=== PATIENT | male | born 1970 | race Caucasian/White ===

== ENCOUNTER 2020-10-16 10:24 | Observation (INO) | payer BC, OTHER ==
[2020-10-16] MEDS ORDERED: Famotidine 20 MG/2 ML SDV IVPUSH ONE (10:27)
--- NOTE | 2020-10-16 10:27 | EDM.PDOC ---
ED HPI GENERAL MEDICAL PROBLEM - General Chief Complaint: Neuro Symptoms/Deficits Stated Complaint: stroke, syncopal Time Seen by Provider: 10/16/20 10:26 Source of Information: Reports: EMS, Family (), Old Records ([facility] chart/EMR). Denies: EMS Notes Reviewed ([employer] records not available at time of dictation, ENT records reviewed.) History Limitations: Reports: Altered Mental Status - History of Present Illness INITIAL COMMENTS - FREE TEXT/NARRATIVE: The patient was brought to the emergency room via ambulance with both faculty physician and EMT accompaniment secondary to a sudden syncopal episode at about 9:30 AM at work with the patient falling backwards and hitting his head. He has been in and out of consciousness since that time and initially did require a sternal rub, however no history of seizure activity, stool/urine incontinence, etc.. He is a somewhat poor historian secondary to his anxiety. Initial presentation of possible left hemiparesis, which did resolve at time of arrival of the paramedics to [facility]. Additional history of some possible hypotension by the ib[employer] web[employer] commerce developer however the paramedics noted hypertension. The patient denies any chest pain/pressure, heart flutter, dizziness, orthostasis, orthopnea, diaphoresis, recent decreased exercise tolerance, or any other anginal-type symptoms with nonspecific bilateral paresthesias possibly secondary to his anxiousness. No recent history of abdominal pain, heartburn, nausea, diarrhea, melena, gross hematochezia, or any food intolerance, including fatty foods, etc.. The patient also denies any recent fever, cough, wheezing, dyspnea, etc.. Note, however, the patient just completed 10 days of quarantine for COVID-19 and just started work today. No complaints of neck/back pain, or other complaints or injuries. No history of recent headaches, visual changes, diplopia, or other change in neurological status other than as above. Note stat Accu-Chek by the ibm websphere commerce developer of 215 mg percent prior to patient's transfer. Onset: Today, Sudden, Unknown/Unsure Onset Date: 10/16/20 Onset Time: 09:30 Duration: Improving Location: Reports: Head (Contusion as above). Denies: Face, Neck, Chest, Abdomen, Back, Pelvis, Upper Extremity, Left, Upper Extremity, Right, Radiates to Quality: Reports: Ache Severity: Mild Improves with: Reports: None Worsens with: Reports: None Context: Reports: Sick Contact (Recent COVID-19 as above), Trauma (As above), Other (As above) Associated Symptoms: Reports: Confusion, Syncope. Denies: Chest Pain, Cough, Diaphoresis, Fever/Chills, Headaches, Loss of Appetite, Malaise, Nausea/Vomiting, Rash, Seizure, Shortness of Breath, Weakness Treatments HOSE BUILDER: Reports: IV/IO, Oxygen - Related Data Allergies Allergy/AdvReac Type Severity Reaction Status Date / Time bupropion [From Wellbutrin] Allergy Nausea and Verified 10/16/20 11:31 Vomiting Home Meds: Home Meds metFORMIN HCl [Metformin HCl] 1,000 mg PO BID 08/29/17 [History] Acetaminophen [Tylenol] 650 mg PO Q4H PRN 10/16/20 [History] Dulaglutide [Trulicity] 1.5 mg SQ WEEKLY 10/16/20 [History] Empagliflozin [Jardiance] 25 mg PO DAILY 10/16/20 [History] Insulin Degludec [Tresiba] 20 unit SQ DAILY 10/16/20 [History] Ubidecarenone [Co Q-10] 100 mg PO DAILY 10/16/20 [History] atorvaSTATin Calcium [Atorvastatin Calcium] 20 mg PO BEDTIME 10/16/20 [History] traZODone HCl [Trazodone HCl] 50 mg PO BEDTIME PRN 10/16/20 [History] Past Medical History HEENT History: Reports: Impaired Vision, Other (See Below). Denies: Allergic Rhinitis, Cataract, Glaucoma, Hard of Hearing, Macular Degeneration, Otitis Media, Retinal Detachment Other HEENT History: No history of diabetic retinopathy. Patient does wear glasses. Cardiovascular History: Reports: High Cholesterol. Denies: Afib, Aneurysm, Arrhythmia, Blood Clots/VTE/DVT, CAD, Heart Murmur, Hypertension, ID, PVD, Syncope Respiratory History: Reports: None. Denies: Asthma, Bronchitis, Recurrent, COPD, Intubation, Previous, PE, Pneumonia, Recurrent, Pneumothorax, Sleep Apnea, TB Gastrointestinal History: Reports: Chronic Constipation, Colon Polyp, GERD, Other (See Below). Denies: Bowel Obstruction, Celiac Disease, Cholelithiasis, Diverticulosis, Gastritis, Inflammatory Bowel Disease, Irritable Bowel Syndrome, Jaundice, Pancreatitis, PUD Other Gastrointestinal History: History of recurrent colonic polyps including removal of 5 tubular adenomas and one additional tubulovillous adenoma at 30 cm by means of colonoscopy in August 2017 as below. Apparent previous colonoscopy and polypectomy. Genitourinary History: Reports: None. Denies: Acute Renal Failure, Chronic Renal Insuffiency, Diabetic Nephropathy, Renal Calculus, Retention, Urinary, STD, Urinary Incontinence Musculoskeletal History: Reports: Arthritis, Back Pain, Chronic, Fracture, Osteoarthritis, Other (See Below). Denies: Amputation, Gout, Neck Pain, Chronic, RA, SLE Other Musculoskeletal History: Left rib fracture at age 16 without sequelae. Neurological History: Reports: None. Denies: Cerebral Aneurysms, Concussion, CVA, Headaches, Chronic, Migraines, MS, Neuropathy, Diabetic, Neuropathy, Peripheral, Parkinson's, Seizure, TIA, Vertigo Psychiatric History: Reports: Anxiety, Depression, Other (See Below). Denies: Abuse, Victim of, ADD, ADHD, Addiction, Psych Hospitalization(s), PTSD, Suicide Attempt, Suicidal Ideation Other Psychiatric History: Chronic insomnia. Note additional grief reaction from his son's by means of a MVA in 2019. Endocrine/Metabolic History: Reports: Diabetes, Type II, IDDM, Other (See Below) (Hypoalbuminemia). Denies: Diabetes, Type I, Diabetes Mellitus, Type 3c, Hypothyroidism Hematologic History: Reports: None. Denies: Anemia, Blood Transfusion(s), Iron Deficiency Immunologic History: Reports: None. Denies: AIDS, HIV, SLE Oncologic (Cancer) History: Reports: None. Denies: Colon, Hodgkin's Lymphoma, Leukemia, Lymphoma, Malignant Melanoma, Non-Hodgkin's Lymphoma, Prostate, Squamous Cell Carcinoma Dermatologic History: Reports: None. Denies: Eczema, Psoriasis - Infectious Disease History Infectious Disease History: Reports: Chicken Pox, Novel Coronavirus (October 2020.). Denies: C-Difficile, Measles, Meningitis, Mononucleosis, MRSA, Mumps, Pertussis (Whooping Cough), Rheumatic Fever, Rubella, Scarlet Fever, Shingles, TB, VRE - Past Surgical History Head Surgeries/Procedures: Reports: None HEENT Surgical History: Reports: Oral Surgery, Other (See Below). Denies: Adenoidectomy, Cataract Surgery, Eye Surgery, Laser Surgery, LASIK, Myringotomy w Tube(s), Naso-Sinus Surgery, Tonsillectomy Other HEENT Surgeries/Procedures: Multiple teeth extractions including complete upper dentures. Cardiovascular Surgical History: Reports: None. Denies: Varicose Respiratory Surgical History: Reports: None. Denies: Thoracentesis GI Surgical History: Reports: Colonoscopy, EGD, Polypectomy, Other (See Below). Denies: Appendectomy, Cholecystectomy, Hernia, Abdominal, Hernia, Inguinal, Hernia Repair/Other Other GI Surgeries/Procedures: EGD in about 2009. Last colonoscopy on 09/01/2017 with polypectomy x6 as above. Male Surgical History: Reports: Circumcision, Vasectomy, Other (See Below). Denies: TURP-Transurethral Resection of Prostate Other Male Surgeries/Procedures: Vasectomy in 2002. Circumcision as an infant. Endocrine Surgical History: Reports: None. Denies: Thyroid Biopsy Neurological Surgical History: Reports: None. Denies: C-Spine, Laminectomy, Lumbar Spine, Sacral Spine, Spinal Fusion, Thoracic Spine, Vertebroplasty Musculoskeletal Surgical History: Reports: None. Denies: Carpal Tunnel, Ganglion Cyst, Joint Replacement, ORIF, Shoulder Surgery Oncologic Surgical History: Reports: None Dermatological Surgical History: Reports: None - Past Imaging History Past Imaging History: Reports: CAT Scan (CT of the abdomen and pelvis on 08/17/2012. CT of the brain on 12/11/2006.) Social & Family History - Family History HEENT: Reports: None. Denies: Glaucoma, Macular Degeneration, Retinal Detachment Cardiac: Reports: Blood Clots/VTE/DVT, Other (See Below). Denies: Afib, Aneurysm, Arrhythmia, CAD, Heart Failure, High Cholesterol, Hypertension, ID, Syncope Other Cardiac Family History: Mother with fatal PE in her 60s. Respiratory: Reports: PE, Other (See Below). Denies: Asthma, COPD, Cystic Fibrosis, Sleep Apnea Other Respiratory Family Hisory: Mother with fatal PE as above. GI: Reports: None, PUD. Denies: Celiac Disease, Cholelithiasis, Colon Polyps, GERD, GI bleed, Inflammatory Bowel Disease, Irritable Bowel Syndrome : Reports: None. Denies: Renal Calculus, Renal Disease/Insufficiency OBGYN: Reports: None. Denies: Endometriosis, Recurrent Spontaneous Musculoskeletal: Reports: None. Denies: Arthritis, Gout, Osteoarthritis, RA, SLE Neurological: Denies: Alzheimers Disease, Cerebral Aneurysms, CVA, Dementia, Migraines, MS, Parkinson's, Seizure, TIA Psychiatric: Reports: None. Denies: Abuse, Victim of, ADD, ADHD, Anxiety, Depression, Psych Hospitalization(s), PTSD, Suicide Attempt Endocrine/Metabolic: Reports: Diabetes, type II, IDDM, Other (See Below). Denies: Diabetes, Type I, Diabetes Mellitus, Type 3c, Hypothyroidism Other Endocrine/Metabolic Family History: Paternal grandmother and paternal aunt with IDDM. Hematologic: Reports: None. Denies: Anemia, SLE Immunologic: Reports: None. Denies: AIDS, HIV, SLE Dermatologic: Reports: None. Denies: Eczema, Psoriasis Oncologic: Reports: Metastatic, Other (See Below) Other Oncologic Family History: Father with fatal unknown type of metastatic cancer-? Bone at age 58. - Tobacco Use Tobacco Use Status *Q: Current Every Day Tobacco User Tobacco Use Within Last Twelve Months: Snuff/Dip Years of Tobacco use: 21 Packs/Tins Daily: 1 Packs/Tins Daily Comment: Started at age 28. Used Tobacco, but Quit: No Smoking Cessation Information Provided To Patient: Yes (At discharge) Second Hand Smoke Exposure: No Source of Second Hand Smoke Exposure: Although vapes. Second Hand Smoke Education Provided: No - Caffeine Use Caffeine Use: Reports: Coffee (2 cups/day). Denies: Energy Drinks, Soda, Tea - Alcohol Use Alcohol Use History: Yes Days Per Week of Alcohol Use: 0 Number of Drinks Per Day: 4 Number of Drinks Per Day Comment: Usually mixed drinks about every 6 months. No previous DWIs, problems with alcohol abuse, etc. Total Drinks Per Week: 0 Alcohol Use in Last Twelve Months: Yes Alcohol Use Frequency: Rarely - Recreational Drug Use Recreational Drug Use: No Drug Use in Last 12 Months: No Recreational Drug Type: Denies: Amphetamines (Speed), Cocaine, Heroin, Inhalants (Glues, Solvents, Aerosols), LSD (Acid), Marijuana/Hashish, Methamphetamine, Morphine, Oxycodone - Living Situation & Occupation Living situation: Reports: (1993, 4 children), with Family () Occupation: Employed ([employer] ED ROS GENERAL - Review of Systems Review Of Systems: Comprehensive ROS is negative, except as noted in HPI. ED EXAM, NEURO - Physical Exam Exam: See Below Exam Limited By: No Limitations General Appearance: Alert, WD/WN, No Apparent Distress, Anxious (Moderate) Eye Exam: Bilateral Eye: EOMI, Normal Fundi, Normal Inspection (No vertigo or nystagmus. Patient does wear glasses.), PERRL Ears: Normal External Exam, Normal Canal, Hearing Grossly Normal, Normal TMs Nose: Normal Inspection, Normal Mucosa, No Blood Throat/Mouth: Normal Inspection, Normal Lips, Normal Teeth (Multiple missing teeth lowers with complete upper dentures and no evidence of acute infection), Normal Gums, Normal Oropharynx, Normal Voice, No Airway Compromise. No: Dysphagia, Inflammation, Perioral Cyanosis Head Exam: Normocephalic, Other (3-4 cm area of mild swelling over the mid supe rior occiput region with no evidence of fracture, crepitation, deformity, etc.). No: Facial Swelling, Facial Tenderness, Sinus Tenderness Neck: Normal Inspection, Supple, Non-Tender, Full Range of Motion. No: Carotid Bruit, Lymphadenopathy (L), Lymphadenopathy (R), Thyromegaly Respiratory/Chest: No Respiratory Distress, Lungs Clear, Normal Breath Sounds, No Accessory Muscle Use, Chest Non-Tender. No: Pleural Rub, Retractions Cardiovascular: Normal Peripheral Pulses, No Edema, No Gallop, No JVD, No Murmur, No Rub, Tachycardia (Regular rhythm). No: Gallop/S3, Gallop/S4, Friction Rub GI/Abdominal: Normal Bowel Sounds, Soft, Non-Tender, No Organomegaly, No Distention, No Abnormal Bruit, No Mass, Pelvis Stable. No: Guarding (Male) Exam: Deferred Rectal (Males) Exam: Deferred Neurological: Alert, Normal Mood/Affect, Normal Dorsiflexion, CN II-XII Intact, Normal Plantar Flexion, Normal Gait, Normal Reflexes (Negative Babinski's, finger to nose, and pronator rotation tests. No evidence of facial paresis, tongue deviation, orthostasis, etc.. Mildly difficult reverse thought processes however adequate. Questionable portal indication of dysarthria.), No Motor/Sensory Deficits, Oriented x 3. No: Babinski Back Exam: Normal Inspection, Full Range of Motion. No: CVA Tenderness (L), CVA Tenderness (R), Muscle Spasm Extremities: Normal Inspection, Normal Range of Motion, Non-Tender, No Pedal Edema, Normal Capillary Refill. No: Irina's Sign Psychiatric: Anxious (Moderate), Depressed Mood, Tearful (Moderate when discussing his son's .) Skin Exam: Warm, Dry, Intact, Normal Color, No Rash. No: Diaphoretic, Ecchymosis, Wound/Incision #1 Interpretation EKG Date: 10/16/20 Time: 10:39 Rhythm: Other (Sinus tachycardia) Rate (Beats/Min): 105 [place]: Normal (Neutral) P-Wave: Present (Noisy baseline) QRS: Normal (0.08 seconds with some repolarization changes) ST-T: Normal QT: Normal MN/PQ Interval: 0.12 seconds representing short MN interval but no delta waves noted. Comparison: NA - No Prior EKG EKG Interpretation Comments: 1. No acute ischemic changes 2. Short MN interval 3. Repolarization changes Course - Vital Signs Last Recorded V/S: Last Vital Signs Temp 36.8 C 10/16/20 11:28 Pulse 85 10/16/20 13:25 Resp 12 10/16/20 13:25 BP 95/64 10/16/20 13:25 Pulse Ox 97 10/16/20 13:25 See Stroke Code Sheet media monitor shows mild sinus tachycardia in the 100s with no ectopy or arrhythmia. Vital Signs - 24 hr 10/16/20 10/16/20 10/16/20 11:28 11:58 12:21 Temperature [ 36.8 C Temporal] Pulse, 92 93 89 Peripheral [ Pulse Oximetry] Respiratory 19 16 16 Rate Blood Pressure 98/66 99/61 90/58 L [Left Upper Arm ] O2 Sat by Pulse 94 L 95 92 L Oximetry 10/16/20 10/16/20 10/16/20 12:36 12:51 13:04 Temperature [ Temporal] Pulse, 87 82 Peripheral [ Pulse Oximetry] Respiratory 16 15 Rate Blood Pressure 98/65 84/47 L 98/60 [Left Upper Arm ] O2 Sat by Pulse 95 95 Oximetry 10/16/20 10/16/20 13:10 13:25 Temperature [ Temporal] Pulse, 84 85 Peripheral [ Pulse Oximetry] Respiratory 16 12 Rate Blood Pressure 88/51 L 95/64 [Left Upper Arm ] O2 Sat by Pulse 97 97 Oximetry - Orders/Labs/Meds Orders: Active Orders 24 hr Category Date Time Status Cardiac Monitoring [RC] STAT Care 10/16/20 10:27 Active Communication Order [RC] PER UNIT ROUTINE Care 10/16/20 10:27 Active EKG Documentation Completion [RC] ASDIRECTED Care 10/16/20 10:27 Active NIH Stroke Scale [RC] ASDIRECTED Care 10/16/20 10:27 Active Oxygen Therapy, ED [RC] PRN Care 10/16/20 10:27 Active Peripheral IV Care [RC] . DIRECTED Care 10/16/20 10:27 Active Pulse Oximetry [RC] CONTINUOUS Care 10/16/20 10:27 Active Up With Assistance [RC] ASDIRECTED Care 10/16/20 10:27 Active Vital Signs [RC] PFP Care 10/16/20 10:27 Active Nothing per Oral Now Diet [DIET] Diet 10/16/20 Breakfast Active Ang Head [CT] Stat Exams 10/16/20 11:21 Taken Ang Neck [CT] Stat Exams 10/16/20 11:43 Taken Brain w wo Cont [MR] Stat Exams 10/16/20 11:45 Ordered Chest 1V Frontal [CR] Stat Exams 10/16/20 10:27 Taken Head wo Cont [CT] Stat Exams 10/16/20 10:27 Taken CULTURE BLOOD [BC] Stat Lab 10/16/20 11:45 Received CULTURE BLOOD [BC] Stat Lab 10/16/20 11:58 Received CULTURE URINE [RM] Routine Lab 10/16/20 11:50 Received PROLACTIN [REF] Stat Lab 10/16/20 10:48 Received Sodium Chloride 0.9% [Saline Flush] Med 10/16/20 10:27 Active 10 ml FLUSH ASDIRECTED PRN Blood Culture x2 Reflex Set [OM.PC] Urgent Oth 10/16/20 11:41 Ordered Obtain Past Medical Record [OM.PC] Stat Oth 10/16/20 10:27 Active Peripheral IV Insertion Adult [OM.PC] Stat Oth 10/16/20 10:27 Ordered Resuscitation Status Stat Resus Stat 10/16/20 10:27 Ordered Medication Orders Sodium Chloride (Saline Flush) 10 ml FLUSH ASDIRECTED PRN PRN Reason: Keep Vein Open Last Admin: 10/16/20 10:51 Dose: 10 ml Documented by: TYLER Labs: Laboratory Tests 10/16/20 10/16/20 10/16/20 Range/Units 10:48 10:48 10:48 WBC 8.9 (4.0-10.2) K/uL RBC 5.25 (4.33-5.41) M/uL Hgb 15.8 (13.1-16.8) g/dL Hct 46.4 (39.0-49.0) % MCV 88.4 (84.0-98.0) fL MCH 30.1 (28.2-33.3) pg MCHC 34.1 (31.7-36.0) g/dL RDW 13.1 (11.2-14.1) % Plt Count 231 (150-350) K/uL Neut % (Auto) 71.9 (45.0-80.0) % Lymph % (Auto) 20.9 (10.0-50.0) % [place] % (Auto) 6.8 (2.0-14.0) % Eos % (Auto) 0.3 (0.0-5.0) % Baso % (Auto) 0.1 (0.0-2.0) % Neut # (Auto) 6.41 (1.40-7.00) K/uL Lymph # (Auto) 1.87 (0.50-3.50) K/uL [place] # (Auto) 0.61 (0.00-1.00) K/uL Eos # (Auto) 0.03 (0.00-0.50) K/uL Baso # (Auto) 0.01 (0.00-0.20) K/uL PT 10.2 (9.5-12.0) SEC INR 1.0 APTT 24.6 (24.5-32.8) SEC D-Dimer, Quantitative < 100 (0-400) ng/mL Sodium (136-145) mmol/L Potassium (3.5-5.1) mmol/L Chloride (98-107) mmol/L Carbon Dioxide (21.0-32.0) mmol/L BUN (7-18) mg/dL Creatinine (0.51-1.17) mg/dL Est Cr Clr Drug Dosing Estimated GFR (MDRD) mL/min Glucose (74-106) mg/dL Lactic Acid (0.4-2.0) mmol/L Uric Acid (2.6-7.2) mg/dL Calcium (8.5-10.1) mg/dL Magnesium (1.8-2.4) mg/dL Total Bilirubin (0.2-1.0) mg/dL AST (15-37) U/L ALT (12-78) U/L Alkaline Phosphatase (46-116) IU/L Creatine Kinase (26-308) U/L Creatine Kinase Index (0.0-2.5) % CK-MB (CK-2) (0.00-3.60) ng/mL Troponin I (0.000-0.056) ng/mL NT-Pro-B Natriuret Pep (0-125) pg/mL Total Protein (6.4-8.2) g/dL Albumin (3.4-5.0) g/dL TSH, Ultra Sensitive (0.358-3.740) mIU/mL Specimen Type Urine Color Urine Appearance Urine pH (5.0-9.0) Ur Specific [place] (1.005-1.030) Urine Protein (NEGATIVE) mg/dL Urine Glucose (UA) (NEGATIVE) mg/dL Urine Ketones (NEGATIVE) mg/dL Urine Occult Blood (NEGATIVE) Urine Nitrite (NEGATIVE) Urine Bilirubin (NEGATIVE) Urine Urobilinogen (0.2-1.0) E.U./dL Ur Leukocyte Esterase (NEGATIVE) Urine RBC /HPF Urine WBC /HPF Ur Epithelial Cells /LPF Urine Bacteria (NONE TO FEW) /HPF 10/16/20 10/16/20 10/16/20 Range/Units 10:48 10:48 11:50 WBC (4.0-10.2) K/uL RBC (4.33-5.41) M/uL Hgb (13.1-16.8) g/dL Hct (39.0-49.0) % MCV (84.0-98.0) fL MCH (28.2-33.3) pg MCHC (31.7-36.0) g/dL RDW (11.2-14.1) % Plt Count (150-350) K/uL Neut % (Auto) (45.0-80.0) % Lymph % (Auto) (10.0-50.0) % [place] % (Auto) (2.0-14.0) % Eos % (Auto) (0.0-5.0) % Baso % (Auto) (0.0-2.0) % Neut # (Auto) (1.40-7.00) K/uL Lymph # (Auto) (0.50-3.50) K/uL [place] # (Auto) (0.00-1.00) K/uL Eos # (Auto) (0.00-0.50) K/uL Baso # (Auto) (0.00-0.20) K/uL PT (9.5-12.0) SEC INR APTT (24.5-32.8) SEC D-Dimer, Quantitative (0-400) ng/mL Sodium 138 (136-145) mmol/L Potassium 3.9 (3.5-5.1) mmol/L Chloride 100 (98-107) mmol/L Carbon Dioxide 19.5 L (21.0-32.0) mmol/L BUN 9 (7-18) mg/dL Creatinine 0.67 (0.51-1.17) mg/dL Est Cr Clr Drug Dosing TNP Estimated GFR (MDRD) > 60 mL/min Glucose 189 H (74-106) mg/dL Lactic Acid 5.3 H (0.4-2.0) mmol/L Uric Acid 3.6 (2.6-7.2) mg/dL Calcium 9.6 (8.5-10.1) mg/dL Magnesium 1.7 L (1.8-2.4) mg/dL Total Bilirubin 0.8 (0.2-1.0) mg/dL AST 21 (15-37) U/L ALT 40 (12-78) U/L Alkaline Phosphatase 78 (46-116) IU/L Creatine Kinase 53 (26-308) U/L Creatine Kinase Index 0.6 (0.0-2.5) % CK-MB (CK-2) 0.30 (0.00-3.60) ng/mL Troponin I 0.000 (0.000-0.056) ng/mL NT-Pro-B Natriuret Pep 14 (0-125) pg/mL Total Protein 7.9 (6.4-8.2) g/dL Albumin 3.8 (3.4-5.0) g/dL TSH, Ultra Sensitive 1.823 (0.358-3.740) mIU/mL Specimen Type Urin[place]ath Urine Color Yellow Urine Appearance Clear Urine pH 7.0 (5.0-9.0) Ur Specific [place] 1.015 (1.005-1.030) Urine Protein Negative (NEGATIVE) mg/dL Urine Glucose (UA) >=1000 H (NEGATIVE) mg/dL Urine Ketones 15 H (NEGATIVE) mg/dL Urine Occult Blood Negative (NEGATIVE) Urine Nitrite Negative (NEGATIVE) Urine Bilirubin Negative (NEGATIVE) Urine Urobilinogen 0.2 (0.2-1.0) E.U./dL Ur Leukocyte Esterase Negative (NEGATIVE) Urine RBC 0-5 /HPF Urine WBC 0-5 /HPF Ur Epithelial Cells Few /LPF Urine Bacteria Few (NONE TO FEW) /HPF Blood cultures x2 were collected Urine specimen set up for culture and sensitivity Prolactin level drawn with results pending. Meds: Medications Generic Name Dose Route Start Last Admin Trade Name Freq PRN Reason Stop Dose Admin Sodium Chloride 10 ml 10/16/20 10:27 10/16/20 10:51 Saline Flush FLUSH 10 ml ASDIRECTED PRN Administration Keep Vein Open Discontinued Medications Generic Name Dose Route Start Last Admin Trade Name Freq PRN Reason Stop Dose Admin Famotidine 40 mg 10/16/20 10:27 10/16/20 10:51 Pepcid IVPUSH 10/16/20 10:28 40 mg ONETIME ONE Administration Lactated Ringer's 1,000 mls @ 999 mls/hr 10/16/20 10:53 10/16/20 11:08 Ringers, Lactated IV 10/16/20 11:53 999 mls/hr .BOLUS ONE Administration Ceftriaxone Sodium 1 gm/ 100 mls @ 200 mls/hr 10/16/20 12:38 10/16/20 12:46 Sodium Chloride IV 10/16/20 13:07 200 mls/hr ONETIME ONE Administration Iopamidol 100 ml 10/16/20 11:50 10/16/20 13:58 Isovue-370 (76%) IVPUSH 10/16/20 11:51 100 ml ONETIME STA Administration Iopamidol Confirm 10/16/20 11:56 Isovue-370 (76%) Administered 10/16/20 11:57 Dose 100 ml .ROUTE .STK-MED ONE Lorazepam 1 mg 10/16/20 10:40 10/16/20 10:51 Ativan IVPUSH 10/16/20 10:41 1 mg ONETIME ONE Administration - Radiology Interpretation Free Text/Narrative:: media monitor shows sinus tachycardia with heart rate in the 110s initially with no ectopy or arrhythmia. Subsequent improvement to the 90s after IV Ativan administration. Chest x-ray, portable, shows evidence of borderline pulmonary obstructive disease with somewhat prominent aortic arch but no cardiomegaly, CHF, pulmonary infiltrates, pneumothorax, etc. Telephone consultation at 10:45 AM with the radiology department at [facility]. Preliminary verbal report of CT scan of the head without contrast was negative for CVA, cerebral hemorrhage, etc. with incidental moderate to severe bilateral ethmoid sinus inflammation noted. CTA of the chest and neck was normal. Note preliminary verbal report was not received from the radiology department as previously requested. Departure - Departure Time of Disposition: 14:00 Disposition: Refer to Observation Condition: Good Clinical Impression: Stroke, Syncope, Mixed anxiety and depressive disorder, Peptic reflux disease, IDDM (insulin dependent diabetes mellitus), Hyperlipidemia, Osteoarthritis, Elevated lactic acid level, COVID-19, Hypotension, Hypomagnesemia, Tobacco abuse counseling - Discharge Information *PRESCRIPTION DRUG MONITORING PROGRAM REVIEWED*: Not Applicable *COPY OF PRESCRIPTION DRUG MONITORING REPORT IN PATIENT JOHANNY: Not Applicable Sepsis Event Note (ED) - Focused Exam Vital Signs: Vital Signs Temp Pulse Resp BP Pulse Ox 10/16/20 13:25 85 12 95/64 97 10/16/20 13:10 84 16 88/51 L 97 10/16/20 13:04 98/60 10/16/20 12:51 82 15 84/47 L 95 10/16/20 12:36 87 16 98/65 95 10/16/20 12:21 89 16 90/58 L 92 L 10/16/20 11:58 93 16 99/61 95 10/16/20 11:28 36.8 C 92 19 98/66 94 L - Problem List & Annotations (1) Stroke SNOMED Code(s): 815292889 Code(s): I63.9 - CEREBRAL INFARCTION, UNSPECIFIED Status: Acute Priority: High Current Visit: Yes Onset Date: 10/16/20 Annotation/Comment:: Despite history as above a stroke code was not called either by [employer] web[employer] commerce developer or paramedics prior to arrival. Stroke code was initiated immediately upon patient's arrival to this facility with all treatment members in the emergency room at time of his arrival. Telephone consultation at 11:[address] Chisholm, stroke neurologist at [facility] in [place], who did recommend that a CTA of the head and neck be conducted with completely normal results as above. He initially recommended an additional MRI of the brain thereafter. No significant neurological deficit including resolution of previous borderline dysarthria. Neurological checks with vitals. Subsequent telephone consultation at 1:[address] Chisholm, updating him about our work-up. He is in agreement with discontinuing previously ordered MRI of the brain with initiation of cardiac work-up as below. No evidence of seizure activity or history with prolactin level drawn with results pending. Possible TIA? Qualifiers: CVA mechanism: unspecified Qualified Code(s): I63.9 - Cerebral infarction, unspecified (2) Syncope SNOMED Code(s): 005036601 Code(s): R55 - SYNCOPE AND COLLAPSE Status: Acute Priority: High Current Visit: Yes Onset Date: 10/16/20 Annotation/Comment:: Suspect syncopal episode of possible cardiac etiology. Echocardiogram to be conducted in this facility on 10/17 with patient to be scheduled for a Cardiolite stress test in this facility with me on 10/19. Initiate standard rule out for ID orders. Cardiology and/or neurology consultation depending on his clinical course. Qualifiers: Syncope type: unspecified Qualified Code(s): R55 - Syncope and collapse (3) Elevated lactic acid level SNOMED Code(s): 3902918 Code(s): R79.89 - OTHER SPECIFIED ABNORMAL FINDINGS OF BLOOD CHEMISTRY Status: Acute Priority: High Current Visit: Yes Onset Date: 10/16/20 Annotation/Comment:: No clinical evidence of sepsis with no leukocytosis, fever, etc. Patient is normally hypotensive. Standard sepsis order set was followed, including a 1 L IV bolus of lactated Ringer's with additional 1 dose of IV Rocephin. Repeat lactic acid level as per this protocol. Further antibiotic therapy, IV hydration, etc. depending on these results. (4) COVID-19 SNOMED Code(s): 456550122 Code(s): U07.1 - COVID-19 Status: Acute Priority: High Current Visit: Yes Onset Date: ~09/27/20 Annotation/Comment:: Note patient just came out of quarantine with delayed return to work secondary to some persistent nonspecific fatigue. Other than low-grade fevers and a mild headache the patient did not have any complications with therapy with this infection. (5) Hyperlipidemia SNOMED Code(s): 24946204 Code(s): E78.5 - HYPERLIPIDEMIA, UNSPECIFIED Status: Chronic Priority: Medium Current Visit: Yes Annotation/Comment:: Lipid panel in the a.m. Qualifiers: Hyperlipidemia type: unspecified Qualified Code(s): E78.5 - Hyperlipidemia, unspecified (6) IDDM (insulin dependent diabetes mellitus) SNOMED Code(s): 56587800 Code(s): GAF5712 - Status: Chronic Priority: Medium Current Visit: Yes Annotation/Comment:: Glycosylated hemoglobin in the a.m. (7) Mixed anxiety and depressive disorder SNOMED Code(s): 746724205 Code(s): F41.8 - OTHER SPECIFIED ANXIETY DISORDERS Status: Chronic Priority: Medium Current Visit: Yes Annotation/Comment:: Moderate control based on today's evaluation. Continue to observe closely by regular providers. Note grief reaction as above. Some anxiety component to patient's symptoms. Emotional support was provided. (8) Osteoarthritis SNOMED Code(s): 368084844 Code(s): M19.90 - UNSPECIFIED OSTEOARTHRITIS, UNSPECIFIED SITE Status: Chronic Priority: Medium Current Visit: Yes Annotation/Comment:: Stable by history with only minimal head contusion and no other significant injury from today syncopal episode. Qualifiers: Osteoarthritis location: multiple joints Osteoarthritis type: primary Qualified Code(s): M89.49 - Other hypertrophic osteoarthropathy, multiple sites (9) Peptic reflux disease SNOMED Code(s): 875039879 Code(s): K21.9 - GASTRO-ESOPHAGEAL REFLUX DISEASE WITHOUT ESOPHAGITIS Status: Chronic Priority: Medium Current Visit: Yes Annotation/Comment:: Stable by history with high-dose IV Pepcid given as GI prophylaxis. (10) Hypomagnesemia SNOMED Code(s): 981028144 Code(s): E83.42 - HYPOMAGNESEMIA Status: Acute Priority: Medium Current Visit: Yes Onset Date: 10/16/20 Annotation/Comment:: Initiate magnesium oxide on admission with close follow-up by regular provider after discharge. (11) Hypotension SNOMED Code(s): 89527255 Code(s): I95.9 - HYPOTENSION, UNSPECIFIED Status: Chronic Priority: Medium Current Visit: Yes Annotation/Comment:: Chronic by patient and his 's history. Nonsymptomatic at this time. Qualifiers: Hypotension type: idiopathic hypotension Qualified Code(s): I95.0 - Idiopathic hypotension (12) Tobacco abuse counseling SNOMED Code(s): 016178618, 347927884, 400211723 Code(s): Z71.6 - TOBACCO ABUSE COUNSELING Status: Chronic Priority: Medium Current Visit: Yes Annotation/Comment:: The patient was strongly encouraged to discontinue chewing tobacco use FLORES and was counseled on the use of Nicorette gum, etc. His was also strongly encouraged to discontinue vaping. Tobacco cessation information to be provided at discharge. - Problem List Review Problem List Initiated/Reviewed/Updated: Yes - My Orders Last 24 Hours: My Active Orders 10/16/20 Breakfast Nothing per Oral Now Diet [DIET] 10/16/20 10:27 Cardiac Monitoring [RC] STAT Communication Order [RC] PER UNIT ROUTINE EKG Documentation Completion [RC] ASDIRECTED NIH Stroke Scale [RC] ASDIRECTED Oxygen Therapy, ED [RC] PRN Peripheral IV Care [RC] . DIRECTED Pulse Oximetry [RC] CONTINUOUS Up With Assistance [RC] ASDIRECTED Vital Signs [RC] PFP Chest 1V Frontal [CR] Stat Head wo Cont [CT] Stat Sodium Chloride 0.9% [Saline Flush] 10 ml FLUSH ASDIRECTED PRN Obtain Past Medical Record [OM.PC] Stat Peripheral IV Insertion Adult [OM.PC] Stat Resuscitation Status Stat 10/16/20 10:48 PROLACTIN [REF] Stat 10/16/20 11:21 Ang Head [CT] Stat 10/16/20 11:41 Blood Culture x2 Reflex Set [OM.PC] Urgent 10/16/20 11:43 Ang Neck [CT] Stat 10/16/20 11:45 Brain w wo Cont [MR] Stat CULTURE BLOOD [BC] Stat 10/16/20 11:50 CULTURE URINE [RM] Routine 10/16/20 11:58 CULTURE BLOOD [BC] Stat - Assessment/Plan Admission H&P: Please use this note as an admission H&P Last 24 Hours: My Active Orders 10/16/20 Breakfast Nothing per Oral Now Diet [DIET] 10/16/20 10:27 Cardiac Monitoring [RC] STAT Communication Order [RC] PER UNIT ROUTINE EKG Documentation Completion [RC] ASDIRECTED NIH Stroke Scale [RC] ASDIRECTED Oxygen Therapy, ED [RC] PRN Peripheral IV Care [RC] . DIRECTED Pulse Oximetry [RC] CONTINUOUS Up With Assistance [RC] ASDIRECTED Vital Signs [RC] PFP Chest 1V Frontal [CR] Stat Head wo Cont [CT] Stat Sodium Chloride 0.9% [Saline Flush] 10 ml FLUSH ASDIRECTED PRN Obtain Past Medical Record [OM.PC] Stat Peripheral IV Insertion Adult [OM.PC] Stat Resuscitation Status Stat 10/16/20 10:48 PROLACTIN [REF] Stat 10/16/20 11:21 Ang Head [CT] Stat 10/16/20 11:41 Blood Culture x2 Reflex Set [OM.PC] Urgent 10/16/20 11:43 Ang Neck [CT] Stat 10/16/20 11:45 Brain w wo Cont [MR] Stat CULTURE BLOOD [BC] Stat 10/16/20 11:50 CULTURE URINE [RM] Routine 10/16/20 11:58 CULTURE BLOOD [BC] Stat Assessment:: As above Plan: As above. Extensive precautions were given to the patient and his , who are in agreement with the treatment plan. The patient's condition is stable enough for observation status and general supervision. Marleni pereira physician assumes care in the a.m.
[2020-10-16] MEDS ORDERED: LORazepam 2 MG/ML SDV IVPUSH ONE (10:40)
[2020-10-16] MEDS: Sodium Chloride 0.9% 10 ML Syringe FLUSH PRN (10:51)
[2020-10-16] MEDS ORDERED: Lactated Ringers 1,000 ML IV ONE ×2 (10:53→15:41)
[2020-10-16 11:13] LABS: PTT,PARTIAL THROMBOPLSTIN TIME 24.6 SEC (24.5-32.8)
[2020-10-16 11:22] LABS: CHLORIDE,CL 100 mmol/L (98-107); SODIUM,NA 138 mmol/L (136-145)
[2020-10-16] MEDS ORDERED: Iopamidol 755 Mg/ML 100 ML Bottle IVPUSH STA (11:50)
[2020-10-16] MEDS ORDERED: Iopamidol 755 Mg/ML 100 ML Bottle ONE (11:56)
[2020-10-16] MEDS ORDERED: cefTRIAXone 1 GM in Sodium Chloride 0.9% 100 ML IV ONE (12:38)
[2020-10-16] MEDS ORDERED: Non-Formulary Medication 1 Each (Dulaglutide [Trulicity] 1.5 MG) SQ SCH (14:23)
[2020-10-16] MEDS ORDERED: traZODone 50 MG Tab PO PRN (14:23)
[2020-10-16] MEDS ORDERED: Sodium Chloride 0.9% 10 ML Syringe FLUSH PRN (14:24)
[2020-10-16] MEDS ORDERED: Magnesium Oxide 400 MG Tab PO ONE (14:28)
[2020-10-16] MEDS ORDERED: 50% Dextrose in Water 50 ML Syringe IV PRN (14:33)
[2020-10-16] MEDS ORDERED: Glucagon,Human Recombinant 1 MG Vial IM PRN (14:33)
[2020-10-16] MEDS ORDERED: Enoxaparin 40 MG/0.4 ML Syringe SUBCUT SCH (15:00)
[2020-10-16] MEDS ORDERED: Acetaminophen 325 MG Tab PO PRN (15:00)
[2020-10-16] MEDS: Nicotine 21 MG/24 Hr Patch TRDERM SCH (15:31)
[2020-10-16] MEDS: Insulin Lispro 100 Units/ML 3 ML Vial SUBCUT SCH ×2 (16:30→20:21)
[2020-10-16] MEDS ORDERED: atorvaSTATin 40 MG Tab PO SCH (20:00)
[2020-10-17] MEDS ORDERED: Insulin Glarg,Human.Rec.Analog 100 Unit/ML SUBCUT SCH (08:00)
[2020-10-17] MEDS ORDERED: Remove Patch NICOTINE PATCH TRDERM SCH (08:00)
[2020-10-17] MEDS ORDERED: Magnesium Oxide 400 MG Tab PO SCH (08:00)
[2020-10-17 08:15] LABS: HEMOGLOBIN A1C 8.3 % (4.3-5.7)
[2020-10-17 08:29] LABS: CHLORIDE,CL 103 mmol/L (98-107); SODIUM,NA 139 mmol/L (136-145)
[2020-10-17] MEDS: Nicotine 21 MG/24 Hr Patch TRDERM SCH (08:32)
[2020-10-17] MEDS: Insulin Lispro 100 Units/ML 3 ML Vial SUBCUT SCH ×2 (08:33→11:51)
[2020-10-17] MEDS: Sodium Chloride 0.9% 10 ML Syringe FLUSH PRN (08:37)
--- NOTE | 2020-10-17 11:28 | PCM.DCSUM1 ---
Discharge Summary - Hospital Course Free Text/Narrative:: Pt admitted after syncopal episode at work Currently asymptomatic ECHO pending Diagnosis: Stroke: No - Discharge Data Discharge Date: 10/17/20 Discharge Disposition: Home, Self-Care 01 Condition: Good - Referral to Home Health Primary Care Physician: PCP None - Discharge Diagnosis/Problem(s) (1) COVID-19 SNOMED Code(s): 107068199 ICD Code: U07.1 - COVID-19 Status: Acute Priority: High Current Visit: Yes Onset Date: ~09/27/20 Problem Details: Note patient just came out of quarantine with delayed return to work secondary to some persistent nonspecific fatigue. Other than low-grade fevers and a mild headache the patient did not have any complications with therapy with this infection. (2) Syncope SNOMED Code(s): 563719390 ICD Code: R55 - SYNCOPE AND COLLAPSE Status: Acute Priority: High Current Visit: Yes Onset Date: 10/16/20 Problem Details: Suspect syncopal episode of possible cardiac etiology. Echocardiogram to be conducted in this facility on 10/17 with patient to be scheduled for a Cardiolite stress test in this facility with me on 10/19. Initiate standard rule out for OK orders. Cardiology and/or neurology consultation depending on his clinical course. Pt stable currently Qualifiers: Syncope type: unspecified Qualified Code(s): R55 - Syncope and collapse - Patient Instructions Diet: Regular Diet as Tolerated Activity: As Tolerated - Discharge Plan *PRESCRIPTION DRUG MONITORING PROGRAM REVIEWED*: Not Applicable *COPY OF PRESCRIPTION DRUG MONITORING REPORT IN PATIENT JOHANNY: Not Applicable Home Medications: Home Meds metFORMIN HCl [Metformin HCl] 1,000 mg PO BID 08/29/17 [History] Acetaminophen [Tylenol] 650 mg PO Q4H PRN 10/16/20 [History] Dulaglutide [Trulicity] 1.5 mg SQ WEEKLY 10/16/20 [History] Empagliflozin [Jardiance] 25 mg PO DAILY 10/16/20 [History] Insulin Degludec [Tresiba] 20 unit SQ DAILY 10/16/20 [History] Ubidecarenone [Co Q-10] 100 mg PO DAILY 10/16/20 [History] atorvaSTATin Calcium [Atorvastatin Calcium] 20 mg PO BEDTIME 10/16/20 [History] traZODone HCl [Trazodone HCl] 50 mg PO BEDTIME PRN 10/16/20 [History] Forms: ED Department Discharge Referrals: Taryn Moore PA-C [Physician [facility]] - - Discharge Summary/Plan Comment DC Time >30 min.: No - General Info Date of Service: 10/17/20 - Review of Systems General: Reports: No Symptoms HEENT: Reports: No Symptoms Pulmonary: Reports: No Symptoms Cardiovascular: Reports: No Symptoms Gastrointestinal: Reports: No Symptoms Musculoskeletal: Reports: No Symptoms Neurological: Reports: No Symptoms - Patient Data Vitals - Most Recent: Last Vital Signs Temp 98.0 F 10/17/20 08:00 Pulse 62 10/17/20 08:00 Resp 14 10/17/20 08:00 BP 85/52 L 10/17/20 08:00 Pulse Ox 94 L 10/17/20 08:00 Weight - Most Recent: 185 lb 14.4 oz I&O - Last 24 hours: Intake & Output 10/17/20 10/17/20 10/17/20 02:59 10:59 18:59 Intake Total 800 Output Total 600 Balance 200 Lab Results - Last 24 hrs: Laboratory Results - last 24 hr 10/16/20 10/16/20 10/16/20 Range/Units 10:48 10:48 10:48 WBC (4.0-10.2) K/uL RBC (4.33-5.41) M/uL Hgb (13.1-16.8) g/dL Hct (39.0-49.0) % MCV (84.0-98.0) fL MCH (28.2-33.3) pg MCHC (31.7-36.0) g/dL RDW (11.2-14.1) % Plt Count (150-350) K/uL Neut % (Auto) (45.0-80.0) % Lymph % (Auto) (10.0-50.0) % Rawlins % (Auto) (2.0-14.0) % Eos % (Auto) (0.0-5.0) % Baso % (Auto) (0.0-2.0) % Neut # (Auto) (1.40-7.00) K/uL Lymph # (Auto) (0.50-3.50) K/uL Rawlins # (Auto) (0.00-1.00) K/uL Eos # (Auto) (0.00-0.50) K/uL Baso # (Auto) (0.00-0.20) K/uL Sodium 138 (136-145) mmol/L Potassium 3.9 (3.5-5.1) mmol/L Chloride 100 (98-107) mmol/L Carbon Dioxide 19.5 L (21.0-32.0) mmol/L BUN 9 (7-18) mg/dL Creatinine 0.67 (0.51-1.17) mg/dL Est Cr Clr Drug Dosing TNP Estimated GFR (MDRD) > 60 mL/min Glucose 189 H (74-106) mg/dL POC Glucose (65-110) mg/dl Hemoglobin A1c (4.3-5.7) % Lactic Acid 5.3 H (0.4-2.0) mmol/L Uric Acid 3.6 (2.6-7.2) mg/dL Calcium 9.6 (8.5-10.1) mg/dL Magnesium 1.7 L (1.8-2.4) mg/dL Total Bilirubin 0.8 (0.2-1.0) mg/dL AST 21 (15-37) U/L ALT 40 (12-78) U/L Alkaline Phosphatase 78 (46-116) IU/L Creatine Kinase 53 (26-308) U/L Creatine Kinase Index 0.6 (0.0-2.5) % CK-MB (CK-2) 0.30 (0.00-3.60) ng/mL Troponin I 0.000 (0.000-0.056) ng/mL NT-Pro-B Natriuret Pep 14 (0-125) pg/mL Total Protein 7.9 (6.4-8.2) g/dL Albumin 3.8 (3.4-5.0) g/dL Triglycerides (30-150) mg/dL Cholesterol (100-200) mg/dL LDL Cholesterol, Calc (0-100) mg/dL HDL Cholesterol (40-60) mg/dL TSH, Ultra Sensitive 1.823 (0.358-3.740) mIU/mL Prolactin 17.8 H (2.6-13.1) ng/mL Specimen Type Urine Color Urine Appearance Urine pH (5.0-9.0) Ur Specific Bailey (1.005-1.030) Urine Protein (NEGATIVE) mg/dL Urine Glucose (UA) (NEGATIVE) mg/dL Urine Ketones (NEGATIVE) mg/dL Urine Occult Blood (NEGATIVE) Urine Nitrite (NEGATIVE) Urine Bilirubin (NEGATIVE) Urine Urobilinogen (0.2-1.0) E.U./dL Ur Leukocyte Esterase (NEGATIVE) Urine RBC /HPF Urine WBC /HPF Ur Epithelial Cells /LPF Urine Bacteria (NONE TO FEW) /HPF 10/16/20 10/16/20 10/16/20 Range/Units 11:50 14:55 14:55 WBC (4.0-10.2) K/uL RBC (4.33-5.41) M/uL Hgb (13.1-16.8) g/dL Hct (39.0-49.0) % MCV (84.0-98.0) fL MCH (28.2-33.3) pg MCHC (31.7-36.0) g/dL RDW (11.2-14.1) % Plt Count (150-350) K/uL Neut % (Auto) (45.0-80.0) % Lymph % (Auto) (10.0-50.0) % Rawlins % (Auto) (2.0-14.0) % Eos % (Auto) (0.0-5.0) % Baso % (Auto) (0.0-2.0) % Neut # (Auto) (1.40-7.00) K/uL Lymph # (Auto) (0.50-3.50) K/uL Rawlins # (Auto) (0.00-1.00) K/uL Eos # (Auto) (0.00-0.50) K/uL Baso # (Auto) (0.00-0.20) K/uL Sodium (136-145) mmol/L Potassium (3.5-5.1) mmol/L Chloride (98-107) mmol/L Carbon Dioxide (21.0-32.0) mmol/L BUN (7-18) mg/dL Creatinine (0.51-1.17) mg/dL Est Cr Clr Drug Dosing Estimated GFR (MDRD) mL/min Glucose (74-106) mg/dL POC Glucose (65-110) mg/dl Hemoglobin A1c (4.3-5.7) % Lactic Acid 1.1 (0.4-2.0) mmol/L Uric Acid (2.6-7.2) mg/dL Calcium (8.5-10.1) mg/dL Magnesium (1.8-2.4) mg/dL Total Bilirubin (0.2-1.0) mg/dL AST (15-37) U/L ALT (12-78) U/L Alkaline Phosphatase (46-116) IU/L Creatine Kinase 87 (26-308) U/L Creatine Kinase Index 0.3 (0.0-2.5) % CK-MB (CK-2) 0.30 (0.00-3.60) ng/mL Troponin I 0.000 (0.000-0.056) ng/mL NT-Pro-B Natriuret Pep (0-125) pg/mL Total Protein (6.4-8.2) g/dL Albumin (3.4-5.0) g/dL Triglycerides (30-150) mg/dL Cholesterol (100-200) mg/dL LDL Cholesterol, Calc (0-100) mg/dL HDL Cholesterol (40-60) mg/dL TSH, Ultra Sensitive (0.358-3.740) mIU/mL Prolactin (2.6-13.1) ng/mL Specimen Type Urinqcath Urine Color Yellow Urine Appearance Clear Urine pH 7.0 (5.0-9.0) Ur Specific Bailey 1.015 (1.005-1.030) Urine Protein Negative (NEGATIVE) mg/dL Urine Glucose (UA) >=1000 H (NEGATIVE) mg/dL Urine Ketones 15 H (NEGATIVE) mg/dL Urine Occult Blood Negative (NEGATIVE) Urine Nitrite Negative (NEGATIVE) Urine Bilirubin Negative (NEGATIVE) Urine Urobilinogen 0.2 (0.2-1.0) E.U./dL Ur Leukocyte Esterase Negative (NEGATIVE) Urine RBC 0-5 /HPF Urine WBC 0-5 /HPF Ur Epithelial Cells Few /LPF Urine Bacteria Few (NONE TO FEW) /HPF 10/16/20 10/16/20 10/16/20 Range/Units 15:29 20:15 20:42 WBC (4.0-10.2) K/uL RBC (4.33-5.41) M/uL Hgb (13.1-16.8) g/dL Hct (39.0-49.0) % MCV (84.0-98.0) fL MCH (28.2-33.3) pg MCHC (31.7-36.0) g/dL RDW (11.2-14.1) % Plt Count (150-350) K/uL Neut % (Auto) (45.0-80.0) % Lymph % (Auto) (10.0-50.0) % Rawlins % (Auto) (2.0-14.0) % Eos % (Auto) (0.0-5.0) % Baso % (Auto) (0.0-2.0) % Neut # (Auto) (1.40-7.00) K/uL Lymph # (Auto) (0.50-3.50) K/uL Rawlins # (Auto) (0.00-1.00) K/uL Eos # (Auto) (0.00-0.50) K/uL Baso # (Auto) (0.00-0.20) K/uL Sodium (136-145) mmol/L Potassium (3.5-5.1) mmol/L Chloride (98-107) mmol/L Carbon Dioxide (21.0-32.0) mmol/L BUN (7-18) mg/dL Creatinine (0.51-1.17) mg/dL Est Cr Clr Drug Dosing Estimated GFR (MDRD) mL/min Glucose (74-106) mg/dL POC Glucose 90 173 H (65-110) mg/dl Hemoglobin A1c (4.3-5.7) % Lactic Acid (0.4-2.0) mmol/L Uric Acid (2.6-7.2) mg/dL Calcium (8.5-10.1) mg/dL Magnesium (1.8-2.4) mg/dL Total Bilirubin (0.2-1.0) mg/dL AST (15-37) U/L ALT (12-78) U/L Alkaline Phosphatase (46-116) IU/L Creatine Kinase 91 (26-308) U/L Creatine Kinase Index 0.3 (0.0-2.5) % CK-MB (CK-2) 0.30 (0.00-3.60) ng/mL Troponin I 0.000 (0.000-0.056) ng/mL NT-Pro-B Natriuret Pep (0-125) pg/mL Total Protein (6.4-8.2) g/dL Albumin (3.4-5.0) g/dL Triglycerides (30-150) mg/dL Cholesterol (100-200) mg/dL LDL Cholesterol, Calc (0-100) mg/dL HDL Cholesterol (40-60) mg/dL TSH, Ultra Sensitive (0.358-3.740) mIU/mL Prolactin (2.6-13.1) ng/mL Specimen Type Urine Color Urine Appearance Urine pH (5.0-9.0) Ur Specific Bailey (1.005-1.030) Urine Protein (NEGATIVE) mg/dL Urine Glucose (UA) (NEGATIVE) mg/dL Urine Ketones (NEGATIVE) mg/dL Urine Occult Blood (NEGATIVE) Urine Nitrite (NEGATIVE) Urine Bilirubin (NEGATIVE) Urine Urobilinogen (0.2-1.0) E.U./dL Ur Leukocyte Esterase (NEGATIVE) Urine RBC /HPF Urine WBC /HPF Ur Epithelial Cells /LPF Urine Bacteria (NONE TO FEW) /HPF 10/17/20 10/17/20 10/17/20 Range/Units 04:19 07:35 07:35 WBC 7.4 (4.0-10.2) K/uL RBC 4.40 (4.33-5.41) M/uL Hgb 13.3 D (13.1-16.8) g/dL Hct 40.3 (39.0-49.0) % MCV 91.6 D (84.0-98.0) fL MCH 30.2 (28.2-33.3) pg MCHC 33.0 (31.7-36.0) g/dL RDW 13.2 (11.2-14.1) % Plt Count 212 (150-350) K/uL Neut % (Auto) 58.8 (45.0-80.0) % Lymph % (Auto) 31.6 (10.0-50.0) % Rawlins % (Auto) 8.2 (2.0-14.0) % Eos % (Auto) 1.3 (0.0-5.0) % Baso % (Auto) 0.1 (0.0-2.0) % Neut # (Auto) 4.35 (1.40-7.00) K/uL Lymph # (Auto) 2.34 (0.50-3.50) K/uL Rawlins # (Auto) 0.61 (0.00-1.00) K/uL Eos # (Auto) 0.10 (0.00-0.50) K/uL Baso # (Auto) 0.01 (0.00-0.20) K/uL Sodium 139 (136-145) mmol/L Potassium 3.5 (3.5-5.1) mmol/L Chloride 103 (98-107) mmol/L Carbon Dioxide 29.5 D (21.0-32.0) mmol/L BUN 11 (7-18) mg/dL Creatinine 0.69 (0.51-1.17) mg/dL Est Cr Clr Drug Dosing 139.02 Estimated GFR (MDRD) > 60 mL/min Glucose 112 H (74-106) mg/dL POC Glucose 105 (65-110) mg/dl Hemoglobin A1c (4.3-5.7) % Lactic Acid (0.4-2.0) mmol/L Uric Acid (2.6-7.2) mg/dL Calcium 8.7 (8.5-10.1) mg/dL Magnesium (1.8-2.4) mg/dL Total Bilirubin 0.7 (0.2-1.0) mg/dL AST 19 (15-37) U/L ALT 31 (12-78) U/L Alkaline Phosphatase 58 (46-116) IU/L Creatine Kinase 63 (26-308) U/L Creatine Kinase Index 0.8 (0.0-2.5) % CK-MB (CK-2) 0.50 (0.00-3.60) ng/mL Troponin I 0.003 (0.000-0.056) ng/mL NT-Pro-B Natriuret Pep (0-125) pg/mL Total Protein 6.2 L (6.4-8.2) g/dL Albumin 2.9 L (3.4-5.0) g/dL Triglycerides 195 H (30-150) mg/dL Cholesterol 145 (100-200) mg/dL LDL Cholesterol, Calc 75 (0-100) mg/dL HDL Cholesterol 31 L (40-60) mg/dL TSH, Ultra Sensitive (0.358-3.740) mIU/mL Prolactin (2.6-13.1) ng/mL Specimen Type Urine Color Urine Appearance Urine pH (5.0-9.0) Ur Specific Bailey (1.005-1.030) Urine Protein (NEGATIVE) mg/dL Urine Glucose (UA) (NEGATIVE) mg/dL Urine Ketones (NEGATIVE) mg/dL Urine Occult Blood (NEGATIVE) Urine Nitrite (NEGATIVE) Urine Bilirubin (NEGATIVE) Urine Urobilinogen (0.2-1.0) E.U./dL Ur Leukocyte Esterase (NEGATIVE) Urine RBC /HPF Urine WBC /HPF Ur Epithelial Cells /LPF Urine Bacteria (NONE TO FEW) /HPF 10/17/20 10/17/20 Range/Units 07:35 08:23 WBC (4.0-10.2) K/uL RBC (4.33-5.41) M/uL Hgb (13.1-16.8) g/dL Hct (39.0-49.0) % MCV (84.0-98.0) fL MCH (28.2-33.3) pg MCHC (31.7-36.0) g/dL RDW (11.2-14.1) % Plt Count (150-350) K/uL Neut % (Auto) (45.0-80.0) % Lymph % (Auto) (10.0-50.0) % Rawlins % (Auto) (2.0-14.0) % Eos % (Auto) (0.0-5.0) % Baso % (Auto) (0.0-2.0) % Neut # (Auto) (1.40-7.00) K/uL Lymph # (Auto) (0.50-3.50) K/uL Rawlins # (Auto) (0.00-1.00) K/uL Eos # (Auto) (0.00-0.50) K/uL Baso # (Auto) (0.00-0.20) K/uL Sodium (136-145) mmol/L Potassium (3.5-5.1) mmol/L Chloride (98-107) mmol/L Carbon Dioxide (21.0-32.0) mmol/L BUN (7-18) mg/dL Creatinine (0.51-1.17) mg/dL Est Cr Clr Drug Dosing Estimated GFR (MDRD) mL/min Glucose (74-106) mg/dL POC Glucose 119 H (65-110) mg/dl Hemoglobin A1c 8.3 H (4.3-5.7) % Lactic Acid (0.4-2.0) mmol/L Uric Acid (2.6-7.2) mg/dL Calcium (8.5-10.1) mg/dL Magnesium (1.8-2.4) mg/dL Total Bilirubin (0.2-1.0) mg/dL AST (15-37) U/L ALT (12-78) U/L Alkaline Phosphatase (46-116) IU/L Creatine Kinase (26-308) U/L Creatine Kinase Index (0.0-2.5) % CK-MB (CK-2) (0.00-3.60) ng/mL Troponin I (0.000-0.056) ng/mL NT-Pro-B Natriuret Pep (0-125) pg/mL Total Protein (6.4-8.2) g/dL Albumin (3.4-5.0) g/dL Triglycerides (30-150) mg/dL Cholesterol (100-200) mg/dL LDL Cholesterol, Calc (0-100) mg/dL HDL Cholesterol (40-60) mg/dL TSH, Ultra Sensitive (0.358-3.740) mIU/mL Prolactin (2.6-13.1) ng/mL Specimen Type Urine Color Urine Appearance Urine pH (5.0-9.0) Ur Specific Bailey (1.005-1.030) Urine Protein (NEGATIVE) mg/dL Urine Glucose (UA) (NEGATIVE) mg/dL Urine Ketones (NEGATIVE) mg/dL Urine Occult Blood (NEGATIVE) Urine Nitrite (NEGATIVE) Urine Bilirubin (NEGATIVE) Urine Urobilinogen (0.2-1.0) E.U./dL Ur Leukocyte Esterase (NEGATIVE) Urine RBC /HPF Urine WBC /HPF Ur Epithelial Cells /LPF Urine Bacteria (NONE TO FEW) /HPF Med Orders - Current: Current Medications Acetaminophen (Tylenol) 650 mg PO Q4H PRN PRN Reason: Pain Last Admin: 10/17/20 08:27 Dose: 650 mg Documented by: Atorvastatin Calcium (Lipitor) 20 mg PO BEDTIME [facility] Last Admin: 10/16/20 20:12 Dose: 20 mg Documented by: Coenzyme Q10 (Coenzyme Q10) 100 mg PO DAILY [facility] Last Admin: 10/17/20 08:32 Dose: 100 mg Documented by: Dextrose/Water (Dextrose 50% In Water) 50 ml IV ASDIRECTED PRN PRN Reason: Hypoglycemia Enoxaparin Sodium (Lovenox) 40 mg SUBCUT Q24H [facility] Last Admin: 10/16/20 15:33 Dose: 40 mg Documented by: Glucagon (Glucagen) 1 mg IM ASDIRECTED PRN PRN Reason: Hypoglycemia Insulin Glargine (Lantus) 20 unit SUBCUT DAILY [facility] Last Admin: 10/17/20 08:30 Dose: 20 units Documented by: Insulin Human Lispro (Humalog) 0 unit SUBCUT QIDACANDBED [facility]; Protocol Last Admin: 10/17/20 08:33 Dose: Not Given Documented by: Magnesium Oxide (Magnesium Oxide) 400 mg PO DAILY [facility] Last Admin: 10/17/20 08:32 Dose: 400 mg Documented by: Miscellaneous Information (Remove Patch) 1 ea TRDERM DAILY [facility] Last Admin: 10/17/20 08:33 Dose: 1 ea Documented by: Nicotine (Habitrol) 21 mg TRDERM DAILY [facility] Last Admin: 10/17/20 08:32 Dose: 21 mg Documented by: Non-Formulary Medication (Dulaglutide [Trulicity]) 1.5 mg SQ WEEKLY [facility] Sodium Chloride (Saline Flush) 10 ml FLUSH ASDIRECTED PRN PRN Reason: Keep Vein Open Last Admin: 10/17/20 08:37 Dose: 10 ml Documented by: Sodium Chloride (Saline Flush) 10 ml FLUSH Q12HR PRN PRN Reason: Keep Vein Open Last Admin: 10/17/20 08:37 Dose: 10 ml Documented by: Trazodone HCl (Trazodone) 50 mg PO BEDTIME PRN PRN Reason: Sleep Discontinued Medications Famotidine (Pepcid) 40 mg IVPUSH ONETIME ONE Stop: 10/16/20 10:28 Last Admin: 10/16/20 10:51 Dose: 40 mg Documented by: Lactated Ringer's (Ringers, Lactated) 1,000 mls @ 999 mls/hr IV .BOLUS ONE Stop: 10/16/20 11:53 Last Admin: 10/16/20 11:08 Dose: 999 mls/hr Documented by: Ceftriaxone Sodium 1 gm/ (Sodium Chloride) 100 mls @ 200 mls/hr IV ONETIME ONE Stop: 10/16/20 13:07 Last Admin: 10/16/20 12:46 Dose: 200 mls/hr Documented by: Lactated Ringer's (Ringers, Lactated) 1,000 mls @ 999 mls/hr IV .BOLUS ONE Stop: 10/16/20 16:41 Last Admin: 10/16/20 16:31 Dose: 999 mls/hr Documented by: Iopamidol ([id number] (76%)) 100 ml IVPUSH ONETIME STA Stop: 10/16/20 11:51 Last Admin: 10/16/20 13:58 Dose: 100 ml Documented by: Iopamidol (Isovue-[id number] (76%)) Confirm Administered Dose 100 ml .ROUTE .STK-MED ONE Stop: 10/16/20 11:57 Lorazepam (Ativan) 1 mg IVPUSH ONETIME ONE Stop: 10/16/20 10:41 Last Admin: 10/16/20 10:51 Dose: 1 mg Documented by: Magnesium Oxide (Magnesium Oxide) 400 mg PO ONETIME ONE Stop: 10/16/20 14:29 Last Admin: 10/16/20 15:31 Dose: 400 mg Documented by: - Exam HEENT: Reports: Pupils Equal Neck: Reports: Supple Lungs: Reports: Clear to Auscultation Cardiovascular: Reports: Regular Rate GI/Abdominal Exam: Soft, Non-Tender Extremities: Normal Inspection Neurological: Reports: No New Focal Deficit, Normal Speech Psy/Mental Status: Reports: Alert, Normal Affect
== END 2020-10-17 11:50 | disposition home or self-care (01) ==
LOC: LL.ED 10:24 → LL.MS 13:53
PROVIDERS: ADMIT Family Medicine; ATTEND Family Medicine
DX: R55 Syncope and collapse (principal); U07.1 COVID-19; I10 Essential (primary) hypertension; E11.9 Type 2 diabetes mellitus without complications; F17.210 Nicotine dependence, cigarettes, uncomplicated; R79.89 Other specified abnormal findings of blood chemistry; E78.5 Hyperlipidemia, unspecified; F41.8 Other specified anxiety disorders; M19.90 Unspecified osteoarthritis, unspecified site; K21.9 Gastro-esophageal reflux disease without esophagitis; Z79.4 Long term (current) use of insulin; Z98.890 Other specified postprocedural states; Z88.8 Allergy status to other drugs, medicaments and biological substances; Z79.899 Other long term (current) drug therapy
CPT/HCPCS: 36415; 70450; 70496; 70498; 71045; 80053; 80061; 81001; 82550; 82553; 82962; 83036; 83605; 83735; 83880; 84146; 84443; 84484; 84550; 85025; 85379; 85610; 85730; 87040; 87086; 93005; 93306; 96361; 96365; 96372; 96375; 99285-25; A9270-GY; G0378; J0696; J1650; J1815-GY; J2060; J3490; J7120; Q9967